=== PATIENT | male | born 1970 | race Caucasian/White ===

== ENCOUNTER 2020-03-12 13:30 | Emergency (ER) | payer BC, SELFPAY ==
[2020-03-12 13:32] VITALS: BP 138/72; PULSE 94; RESP 17; TEMP 36.8; O2SAT 100; BMI 58.8
--- NOTE | 2020-03-12 13:45 | XR_ITS ---
PROCEDURE: XR FOOT RT MIN 3V CLINICAL INDICATION: fall, toe pain Pain COMPARISON: No exams were available for comparison FINDINGS: Prominent os trigonum is present with bony hypertrophic change with the calcaneus. Osteoarthritic changes are present at the talonavicular and navicular cuneiform joint. There is a small calcaneal spur. Hypertrophic changes are present laterally at the navicular cuneiform region. There is flattening of the navicular laterally at this area. IMPRESSION: 1. No acute fracture. 2. Osteoarthritic changes. 3. Flattening of the navicular laterally which may be related to developing avascular necrosis or posttraumatic change with osteoarthritis. Dictated by: Lul Che MD 03/12/2020 14:44 Lul Che MD in [place] 03/12/2020 14:44
--- NOTE | 2020-03-12 13:46 | XR_ITS ---
PROCEDURE: XR KNEE LT 3V CLINICAL INDICATION: fall, knee pain COMPARISON: No exams were available for comparison FINDINGS: No fracture or dislocation. No lytic or blastic change. There is normal mineralization. Moderate to severe osteoarthritic changes are present at the knee. Soft tissue calcification is present along the medial and posterior aspect of the proximal leg consistent with phleboliths. Other findings:None. IMPRESSION: Osteoarthritis, no acute finding. Dictated by: Lul Che MD 03/12/2020 14:42 Lul Che MD in [facility] 03/12/2020 14:42
--- NOTE | 2020-03-12 13:46 | HMH.EDGENADL ---
ED Disposition Clinical Impression: Left knee injury Qualifiers: Encounter type: initial encounter Qualified Code(s): S89.92XA - Unspecified injury of left lower leg, initial encounter Disposition: Home, Self-Care Condition on Discharge: Good Instructions: DI for Knee Pain Additional Instructions: You have been evaluated for fall, left knee injury. Please wear a brace for comfort. Follow-up with your primary care physician and orthopedics in clinic. Return to the emergency department if you have any new or worsening pain or other concerns. Referrals: Elysia Gillis PA [Primary Care Provider] - Francesca Mcdaniel MD [Physician] - Time of Disposition: 16:16 - Critical Care Critical Care Time: No Attestation: On , the high probability of a clinically significant, sudden or life threatening deterioration of the following system(s) required my full and direct attention, intervention and personal management. The time I documented below is in addition to time spent performing reported procedures but includes the following listed in this critical care notation. Medical Decision Making - Medical Records Medical records reviewed: Yes: I reviewed the patient's medical records. - Gustavo Inquiry Pt receiving controlled substance: No Vital Signs: 03/12/20 13:32 Temperature 98.3 F Temperature Source Temporal Artery Scan Pulse Rate [Right] 94 H Respiratory Rate 17 Blood Pressure [Right Arm] 138/72 Blood Pressure Mean [Right Arm] 94 02 Sat by Pulse Oximetry 100 - Radiology Data #1 Image(s): Knee Image Reviewed: Yes I reviewed the patient's radiology results, Yes I reviewed the patient's radiology image Preliminary Findings: Normal/NAD FINDINGS: There are moderate to severe osteoarthritic changes of the left knee greatest at the medial compartment and patellofemoral joint. No acute fracture or dislocation is evident. Mildly prominent bony spurs are noted at the tibial spine and at the medial joint space and patellofemoral joint. There is a small knee joint effusion. There is a Tamez's cyst present measuring 3.6 cm. The cruciate ligaments are not well delineated and menisci are not well delineated with CT. IMPRESSION: 1. No acute fracture. 2. Moderate to severe osteoarthritic change with knee joint effusion and Tamez's cyst Medical Decision Narrative: In summary this is a 50-year-old male with history of right knee osteoarthritis presenting to the emergency department with right foot pain and left knee pain after a fall. Patient clinically stable on arrival. Bruising on the right foot is concerning for fracture. Left knee is tender to palpation, no palpable bony abnormality or effusion. Plan to start with plain film x-rays and reassess. X-rays show osteoarthritis of the left knee, but no acute fracture. No fractures in the right foot. On reassessment patient says he continues to have knee pain, located in the middle of his knee. He is unable to ambulate or bear weight. Concern for occult fracture like a tibial plateau. Will obtain CT scan of the lower extremity. CT scan shows no tibial plateau fracture. It does show bone spurs and arthritic changes. No significant joint instability on examination. Patient counseled that we have not evaluated menisci or ligaments of the knee, he may have a partial or complete tear. Patient given a soft knee brace. Recommended to take Tylenol and ibuprofen. Follow-up with orthopedics in clinic and PCP. General Adult HPI - General Chief complaint: Fall Stated complaint: ao10/ fell on wet mat Time Seen by Provider: 03/12/20 13:46 Mode of Arrival: Ambulatory Limitations: No Limitations Description of Symptoms (Recalled from ER Triage Doc. by RN): Fall yesterday outside on the concrete, pt states he slipped on a wet door mat and injured his left forearm, kimberly. ankles and knees. - History of Present Illness HPI narrative: 50-year-old male with histor
[2020-03-12 14:02] VITALS: BP 134/85; PULSE 87; RESP 17; O2SAT 99
--- NOTE | 2020-03-12 14:05 | XR_ITS ---
PROCEDURE: XR ANKLE LT MIN 3V CLINICAL INDICATION: injury Posttraumatic pain COMPARISON: No exams were available for comparison FINDINGS: No acute fracture or dislocation evident. Prominent os trigonum is present with an osteophyte with the os trigonum with calcaneus. Hypertrophic changes are present at the talonavicular joint. There is generalized soft tissue swelling. IMPRESSION: Degenerative changes, no acute finding Dictated by: Lul Ceh MD 03/12/2020 14:37 Lul Che MD in [place] 03/12/2020 14:37
--- NOTE | 2020-03-12 14:05 | XR_ITS ---
PROCEDURE: XR TIBIA FIBULA LT 2V CLINICAL INDICATION: injury Pain pain COMPARISON: No exams were available for comparison FINDINGS: No fracture or dislocation. No lytic or blastic change. There is normal mineralization. Osteoarthritic changes of the knee and ankle. Mild generalized soft tissue swelling. Other findings:None. IMPRESSION: No acute findings. Dictated by: Lul Che MD 03/12/2020 14:38 Lul Che MD in [facility] 03/12/2020 14:38
--- NOTE | 2020-03-12 15:06 | CT_ITS ---
PROCEDURE: CT KNEE LT WO CON CLINICAL HISTORY: fall, can't bear weight Posttraumatic pain, can't bear weight COMPARISON: No exams were available for comparison TECHNIQUE: Axial images obtained with sagittal and coronal reformats. All CT scans at the facility use one or more dose reduction, viz: automated exposure control, ma/kV adjustment per patient size (including targeted exams where dose is matched to indication, i.e. head), or iterative reconstruction technique. FINDINGS: There are moderate to severe osteoarthritic changes of the left knee greatest at the medial compartment and patellofemoral joint. No acute fracture or dislocation is evident. Mildly prominent bony spurs are noted at the tibial spine and at the medial joint space and patellofemoral joint. There is a small knee joint effusion. There is a Tamez's cyst present measuring 3.6 cm. The cruciate ligaments are not well delineated and menisci are not well delineated with CT. IMPRESSION: 1. No acute fracture. 2. Moderate to severe osteoarthritic change with knee joint effusion and Tamez's cyst Dictated by: Lul Che MD 03/12/2020 16:08 Lul Che MD in [place] 03/12/2020 16:08
[2020-03-12 15:30] VITALS: BP 137/85; PULSE 84; RESP 19; O2SAT 98
[2020-03-12 16:31] VITALS: BP 133/87; PULSE 87; RESP 18; TEMP 36.7; O2SAT 100
== END 2020-03-12 16:31 | disposition home or self-care (01) ==
PROVIDERS: Emergency Provider Emergency Medicine; PCP Nurse Practitioner Family
DX: S89.92XA Unspecified injury of left lower leg, initial encounter (principal); S50.12XA Contusion of left forearm, initial encounter; S90.02XA Contusion of left ankle, initial encounter; W01.0XXA Fall on same level from slipping, tripping and stumbling without subsequent striking against object, initial encounter; Y92.018 Other place in single-family (private) house as the place of occurrence of the external cause
CPT/HCPCS: 73562; 73590; 73610; 73630; 73700; 99282

== ENCOUNTER → 2020-03-31 11:23 | Outpatient (CLI) | payer BC, SELFPAY ==
--- NOTE | 2020-03-31 11:31 | XR_ITS ---
PROCEDURE: XR KNEE RT 4V CLINICAL INDICATION: B/L knee pain COMPARISON: CR KNEE 4V RT from 03/13/2019 CR KNEE 4V LT from 03/13/2019 CR XR KNEE LT 3V from 03/12/2020 FINDINGS: No fracture or dislocation. No lytic or blastic change. There is normal mineralization. There are severe osteoarthritic changes of the medial compartment and patellofemoral joint with loss of joint space medially with osteophyte formation and osteosclerosis. Mild osteoarthritis is present in the lateral compartment. Other findings:None. IMPRESSION: No change severe osteoarthritis of the right knee Dictated by: Lul Che MD 03/31/2020 13:20 Lul Che MD in [place] 03/31/2020 13:20
--- NOTE | 2020-03-31 11:31 | XR_ITS ---
PROCEDURE: XR KNEE LT 4V CLINICAL INDICATION: BL knee pain COMPARISON: CR KNEE 4V RT from 03/13/2019 CR KNEE 4V LT from 03/13/2019 CR XR KNEE LT 3V from 03/12/2020 FINDINGS: There are severe osteoarthritic changes of the medial compartment and patellofemoral joint with mild osteoarthritis of the lateral compartment. No fracture or dislocation. No lytic or blastic change. Other findings:None. IMPRESSION: No change severe osteoarthritis Dictated by: Lul Che MD 03/31/2020 13:18 Lul Che MD in [place] 03/31/2020 13:18
== END ==
PROVIDERS: PCP Nurse Practitioner Family; Visit Provider Orthopaedic Surgery
DX: M25.562 Pain in left knee (principal); M25.561 Pain in right knee
CPT/HCPCS: 73564

== ENCOUNTER 2021-04-29 16:00 | Outpatient (RCR) | payer BC, SELFPAY ==
--- NOTE | 2021-04-06 13:43 | HMH.PTOPWND ---
Rehab Outpt Wound Evaluation Rehab OP Wound Evaluation Start: 04/06/21 13:36 Freq: Status: Active Protocol: Document 04/06/21 13:36 PHONATY (Rec: 04/06/21 13:43 PHORNE [id number]) Electronically Signed By Madhu Alford, PT 04/06/21 13:36 Subjective/History History History Pt is 51 yowm who presents with c/o B LE edema x ~ 10 yrs , but worse x ~6-7 yrs. He reports increased pain in B LE with increased swelling, but no numbness or tingling. He has edema at night with LE elevation. He reports hx of HTN, and B LE OA. He reports pain is worse on B LE in the gaitor area. Subjective Subjective 2/4 tenderness to palpation B LE gaitor area. Currently pain is 4/10, 9/10 at worst. Increased fibrosis in B LE from medial thigh to ankle. Possible mixed diagnosis of LipoLymphedema. Lymphedema Eval Classification of Lymphedema Secondary Lymphedema Yes Stemmer's sign Stemmer's Sign yes Stage of Lymphedema Lymphedema stages Stage II (Pitting edema, increased fibrosis w/ decreased pitting) Skin Changes Dry Skin Yes Skin Folds Yes Papillomatosis Yes Redness Yes Discoloration of Skin Yes Peau D'Mckenzie Yes Other Changes Yes Pain Scale Pain Scale (0-10) 9 Affected Extremities Areas Affected by Lymphedema/Edema Right Lower Extremity,Left Lower Extremity Manual Lymphatic Drainage Treatment Area MLD Treatment Area Right Lower Extremity,Left Lower Extremity Wound Problems/Impairments Impairments Problems/Impairmments Palpation Tenderness,Impaired Endurance,Impaired Walking, Impaired Standing,Impaired Recreational Activities, Increased Edema,Lymphedema Present,Subjective C/O Pain, Impaired Self Care/Self Management Prognosis Rehab Potential Good Clinical Impression Consistent with Diagnosis Yes Short Term Goals Number of Weeks 4 Decreased
== END 2021-04-29 16:05 | disposition home or self-care (01) ==
LOC: PT 16:00
PROVIDERS: Visit Provider Emergency Medicine
DX: R60.0 Localized edema (principal)
CPT/HCPCS: 97110; 97140; 97162; 97760

== ENCOUNTER → 2021-05-13 17:11 | Outpatient (CLI) | payer BC, SELFPAY ==
[2021-05-13 18:52] LABS: Amphetamine/Metha Screen,Urine Negative ng/ml (<1000); Barbiturates Screen,Urine Negative ng/ml (<200)
[2021-05-13 18:53] LABS: Benzodiazepines Screen,Urine Negative ng/ml (<200)
[2021-05-13 18:54] LABS: Cannabinoid Screen,Urine Negative ng/ml (<50); Cocaine Screen,Urine Negative ng/ml (<300)
[2021-05-13 18:55] LABS: Methadone Screen,Urine Negative ng/ml (<300); Opiate Screen,Urine Positive ng/ml (<300)
[2021-05-13 18:56] LABS: Phencyclidine Screen,Urine Negative ng/ml (<25)
== END ==
PROVIDERS: Visit Provider Emergency Medicine
DX: S89.92XA Unspecified injury of left lower leg, initial encounter (principal)
CPT/HCPCS: 80305

== ENCOUNTER → 2021-07-13 16:00 | Outpatient (CLI) | payer MEDICARE, BC, SELFPAY ==
[2021-07-13 19:32] LABS: Amphetamine/Metha Screen,Urine Negative ng/ml (<1000)
[2021-07-13 19:33] LABS: Barbiturates Screen,Urine Negative ng/ml (<200)
[2021-07-13 19:34] LABS: Benzodiazepines Screen,Urine Negative ng/ml (<200); Cannabinoid Screen,Urine Negative ng/ml (<50)
[2021-07-13 19:35] LABS: Cocaine Screen,Urine Negative ng/ml (<300); Methadone Screen,Urine Negative ng/ml (<300)
[2021-07-13 19:36] LABS: Opiate Screen,Urine Positive ng/ml (<300)
[2021-07-13 19:37] LABS: Phencyclidine Screen,Urine Negative ng/ml (<25)
== END ==
PROVIDERS: Visit Provider Emergency Medicine
DX: Z79.899 Other long term (current) drug therapy (principal)
CPT/HCPCS: 80305

== ENCOUNTER → 2021-09-08 12:08 | Outpatient (CLI) | payer MEDICARE, BC, SELFPAY ==
[2021-09-08 20:12] LABS: Amphetamine/Metha Screen,Urine Negative ng/ml (<1000)
[2021-09-08 20:13] LABS: Barbiturates Screen,Urine Negative ng/ml (<200); Benzodiazepines Screen,Urine Negative ng/ml (<200)
[2021-09-08 20:14] LABS: Cannabinoid Screen,Urine Negative ng/ml (<50)
[2021-09-08 20:15] LABS: Cocaine Screen,Urine Negative ng/ml (<300); Methadone Screen,Urine Negative ng/ml (<300)
[2021-09-08 20:16] LABS: Opiate Screen,Urine Positive ng/ml (<300); Phencyclidine Screen,Urine Negative ng/ml (<25)
== END ==
PROVIDERS: PCP Emergency Medicine; Visit Provider Emergency Medicine
DX: G89.29 Other chronic pain (principal); M25.569 Pain in unspecified knee; Z79.899 Other long term (current) drug therapy
CPT/HCPCS: 80305

== ENCOUNTER 2021-09-18 16:00 | Outpatient (RCR) | payer MEDICARE, BC, SELFPAY ==
--- NOTE | 2021-09-08 14:04 | HMH.PTOPWND ---
Rehab Outpt Wound Evaluation Rehab OP Wound Evaluation Start: 09/08/21 13:29 Freq: Status: Active Protocol: Document 09/08/21 13:55 BRIGITTE (Rec: 09/08/21 14:02 PHORNANCIE [id number]) Electronically Signed By Madhu Alford, PT 09/08/21 13:55 Subjective/History History History Pt is 51 yowm who presents with c/o B LE edema x ~ 2-3 yrs. He reports prescription diuretics have helped reduce is edema a little bit. He also reports he recently had a large open wound to his posterior L calf, but it is healing well. He states, I scratched my leg too much with a back rn documentation specialist and then it started leaking all the time, but its better now. He reports no pain currently and no tenderness to palpation. Subjective Subjective B lower legs with fibrotic woody edema from knee distally. pain currently 0/10. Lymphedema Eval Classification of Lymphedema Secondary Lymphedema Yes Stemmer's sign Stemmer's Sign no Stage of Lymphedema Lymphedema stages Stage III (Non-pitting, fibrosis and sclerosis, skin changes) Skin Changes Dry Skin Yes Taut, Shiny Skin Yes Skin Folds Yes Hyperkeratosis Yes Papillomatosis Yes Redness Yes Wounds Yes Discoloration of Skin Yes Other Changes Yes Pain Scale Pain Scale (0-10) 0 Affected Extremities Areas Affected by Lymphedema/Edema Right Lower Extremity,Left Lower Extremity Manual Lymphatic Drainage Treatment Area MLD Treatment Area Right Lower Extremity,Left Lower Extremity Wound Problems/Impairments Impairments Problems/Impairmments Impaired Endurance,Impaired Walking,Impaired Standing, Impaired Sitting,Impaired Dressing,Impaired Household Care,Impaired Recreational Activities,Increased Edema, Lymphedema Present,Wound Care Needs,Subjective C/O Pain, Impaired Self Care/Self
== END 2021-09-18 16:05 | disposition home or self-care (01) ==
LOC: PT 16:00
PROVIDERS: PCP Emergency Medicine; Visit Provider Emergency Medicine
DX: I89.0 Lymphedema, not elsewhere classified (principal)
CPT/HCPCS: 97162; 97760

== ENCOUNTER → 2021-11-04 07:13 | Outpatient (CLI) | payer MEDICARE, BC, SELFPAY ==
[2021-11-03 20:16] LABS: Amphetamine/Metha Screen,Urine Negative ng/ml (<1000); Barbiturates Screen,Urine Negative ng/ml (<200)
[2021-11-03 20:17] LABS: Benzodiazepines Screen,Urine Negative ng/ml (<200)
[2021-11-03 20:18] LABS: Cannabinoid Screen,Urine Negative ng/ml (<50); Cocaine Screen,Urine Negative ng/ml (<300)
[2021-11-03 20:19] LABS: Methadone Screen,Urine Negative ng/ml (<300)
[2021-11-03 20:20] LABS: Opiate Screen,Urine Positive ng/ml (<300); Phencyclidine Screen,Urine Negative ng/ml (<25)
== END ==
PROVIDERS: PCP Emergency Medicine; Visit Provider Emergency Medicine
DX: Z79.899 Other long term (current) drug therapy (principal)
CPT/HCPCS: 80305

== ENCOUNTER → 2021-12-30 06:25 | Outpatient (CLI) | payer MEDICARE, BC, SELFPAY ==
[2021-12-30 18:10] LABS: Amphetamine/Metha Screen,Urine Negative ng/ml (<1000)
[2021-12-30 18:11] LABS: Barbiturates Screen,Urine Negative ng/ml (<200); Benzodiazepines Screen,Urine Negative ng/ml (<200)
[2021-12-30 18:12] LABS: Cannabinoid Screen,Urine Negative ng/ml (<50)
[2021-12-30 18:13] LABS: Cocaine Screen,Urine Negative ng/ml (<300); Methadone Screen,Urine Negative ng/ml (<300)
[2021-12-30 18:14] LABS: Opiate Screen,Urine Positive ng/ml (<300)
[2021-12-30 18:15] LABS: Phencyclidine Screen,Urine Negative ng/ml (<25)
== END ==
PROVIDERS: PCP Emergency Medicine; Visit Provider Emergency Medicine
DX: Z79.899 Other long term (current) drug therapy (principal)
CPT/HCPCS: 80305

== ENCOUNTER → 2022-03-30 16:00 | Outpatient (CLI) | payer MEDICARE, BC, SELFPAY ==
[2022-03-30 21:29] LABS: Amphetamine/Metha Screen,Urine Negative ng/ml (<1000)
[2022-03-30 21:30] LABS: Barbiturates Screen,Urine Negative ng/ml (<200); Benzodiazepines Screen,Urine Negative ng/ml (<200)
[2022-03-30 21:31] LABS: Cannabinoid Screen,Urine Negative ng/ml (<50)
[2022-03-30 21:32] LABS: Cocaine Screen,Urine Negative ng/ml (<300); Methadone Screen,Urine Negative ng/ml (<300)
[2022-03-30 21:33] LABS: Opiate Screen,Urine Positive ng/ml (<300)
[2022-03-30 21:35] LABS: Phencyclidine Screen,Urine Negative ng/ml (<25)
== END ==
PROVIDERS: PCP Emergency Medicine; Visit Provider Emergency Medicine
DX: Z79.899 Other long term (current) drug therapy (principal)
CPT/HCPCS: 80305

== ENCOUNTER → 2022-05-28 15:39 | Outpatient (CLI) | payer MEDICARE, BC, SELFPAY ==
[2022-05-28 19:28] LABS: Amphetamine/Metha Screen,Urine Negative ng/ml (<1000)
[2022-05-28 19:29] LABS: Barbiturates Screen,Urine Negative ng/ml (<200)
[2022-05-28 19:31] LABS: Benzodiazepines Screen,Urine Negative ng/ml (<200); Cannabinoid Screen,Urine Negative ng/ml (<50)
[2022-05-28 19:32] LABS: Cocaine Screen,Urine Negative ng/ml (<300)
[2022-05-28 19:33] LABS: Methadone Screen,Urine Negative ng/ml (<300); Opiate Screen,Urine Positive ng/ml (<300)
[2022-05-28 19:34] LABS: Phencyclidine Screen,Urine Negative ng/ml (<25)
== END ==
PROVIDERS: PCP Emergency Medicine; Visit Provider Emergency Medicine
DX: Z79.899 Other long term (current) drug therapy (principal)
CPT/HCPCS: 80305

== ENCOUNTER → 2022-07-23 10:32 | Outpatient (CLI) | payer MEDICARE, BC, SELFPAY ==
[2022-07-23 18:38] LABS: Basophils # 0.1 K/mm3 (0-0.2); Basophils % 0.5 % (0.1-2.0); Eosinophils # 0.3 K/mm3 (0.0-0.4); Eosinophils % 3.6 % (0.1-12.0); Hemoglobin 14.5 g/dL (14.1-18.0); Lymphocytes # 1.7 K/mm3 (0.7-4.5); Lymphocytes % 20.2 % (10-50); Mean Corpuscular HGB Conc 32.3 g/dL (31.8-35.4); Mean Corpuscular Hemoglobin 28.1 pg (27.0-31.2); Mean Platelet Volume 8.9 fl (7.4-10.4); Monocytes # 0.7 K/mm3 (0.1-1.0); Monocytes % 8.6 % (1.7-9.3); Neutrophils # 5.8 K/mm3 (1.8-7.8); Neutrophils % 67.1 % (37.0-80.0); Platelet Count 286 K/mm3 (142-424); Red Blood Count 5.18 M/mm3 (4.60-6.20); Red Cell Distribution Width 16.4 % (11.5-17.5); White Blood Count 8.7 K/mm3 (4.8-10.8)
[2022-07-23 18:52] LABS: Alanine Aminotransferase 22 U/L (12-78); Albumin Level 4.3 g/dl (3.5-5.0); Albumin/Globulin Ratio 1.4 (1.1-1.8); Alkaline Phosphatase 107 U/L (38-126); Anion Gap 12.2 mEq/L (5-15); Aspartate Amino Transferase 28 U/L (17-59); Bilirubin,Total 0.6 mg/dl (0.2-1.3); Blood Urea Nitrogen 21 mg/dl (9-20); Calcium 9.2 mg/dl (8.4-10.2); Carbon Dioxide 26 mmol/L (22.0-30.0); Chloride 100 mmol/L (98-107); Chol/HDL Ratio 2.5 (1-3.5); Cholesterol 158 mg/dl (140-200); Estimated Glomerular Filt Rate 79 ml/min (>60); GFR (African American) 95 ML/MIN (>60); Globulin 3.1 g/dL (1.3-3.2); Glucose 94 mg/dl (74-100); HDL Cholesterol 63 mg/dl (40-60); Potassium 4.2 mmoL/L (3.5-5.1); Sodium 134 mmol/L (136-145); Total Protein,Serum 7.4 g/dl (6.3-8.2); Triglycerides 101 mg/dl (30-150); VLDL Cholesterol 20 mg/dL (0-40)
[2022-07-23 19:03] LABS: Direct LDL Cholesterol 67.11 mg/dL (100-129); Free T4 (Free Thyroxine) 1.35 ng/dl (0.78-2.19)
[2022-07-23 19:05] LABS: Amphetamine/Metha Screen,Urine Negative ng/ml (<1000)
[2022-07-23 19:06] LABS: 25-OH Vitamin D, Total 17.7 ng/mL (30-100); Barbiturates Screen,Urine Negative ng/ml (<200); Benzodiazepines Screen,Urine Positive ng/ml (<200)
[2022-07-23 19:07] LABS: Cannabinoid Screen,Urine Positive ng/ml (<50)
[2022-07-23 19:08] LABS: Cocaine Screen,Urine Negative ng/ml (<300)
[2022-07-23 19:09] LABS: Methadone Screen,Urine Negative ng/ml (<300); Opiate Screen,Urine Positive ng/ml (<300)
[2022-07-23 19:10] LABS: Phencyclidine Screen,Urine Negative ng/ml (<25)
[2022-07-23 19:20] LABS: Thyroid Stimulating Hormone 2.15 uIU/mL (0.465-4.68)
== END ==
LOC: LAB.DROPOF 08-10 10:32
PROVIDERS: PCP Emergency Medicine; Visit Provider Emergency Medicine
DX: R53.83 Other fatigue (principal); E55.9 Vitamin D deficiency, unspecified; G89.29 Other chronic pain; E66.9 Obesity, unspecified; Z68.43 Body mass index [BMI] 50.0-59.9, adult; Z79.899 Other long term (current) drug therapy
CPT/HCPCS: 80053; 80061; 80305; 82306; 84439; 84443; 85025

== ENCOUNTER → 2022-07-23 23:40 | Outpatient (CLI) | payer MEDICARE, BC, SELFPAY | PROVIDERS: PCP Emergency Medicine; Visit Provider Emergency Medicine | DX: R53.83 Other fatigue (principal); E55.9 Vitamin D deficiency, unspecified ==

== ENCOUNTER → 2022-09-15 15:10 | Outpatient (CLI) | payer MEDICARE, BC, SELFPAY ==
[2022-09-15 20:16] LABS: Amphetamine/Metha Screen,Urine Negative ng/ml (<1000)
[2022-09-15 20:17] LABS: Barbiturates Screen,Urine Negative ng/ml (<200)
[2022-09-15 20:18] LABS: Benzodiazepines Screen,Urine Negative ng/ml (<200); Cannabinoid Screen,Urine Positive ng/ml (<50)
[2022-09-15 20:19] LABS: Cocaine Screen,Urine Negative ng/ml (<300)
[2022-09-15 20:20] LABS: Methadone Screen,Urine Negative ng/ml (<300); Opiate Screen,Urine Positive ng/ml (<300)
[2022-09-15 20:21] LABS: Phencyclidine Screen,Urine Negative ng/ml (<25)
== END ==
PROVIDERS: PCP Emergency Medicine; Visit Provider Emergency Medicine
DX: G89.29 Other chronic pain (principal); Z79.899 Other long term (current) drug therapy
CPT/HCPCS: 80305

== ENCOUNTER → 2022-11-08 15:40 | Outpatient (CLI) | payer MEDICARE, BC, SELFPAY | PROVIDERS: PCP Emergency Medicine; Visit Provider Emergency Medicine | DX: G89.29 Other chronic pain (principal) ==

== ENCOUNTER → 2022-11-08 18:54 | Outpatient (CLI) | payer MEDICARE, BC, SELFPAY ==
[2022-11-08 19:51] LABS: Amphetamine/Metha Screen,Urine Negative ng/ml (<1000); Barbiturates Screen,Urine Negative ng/ml (<200)
[2022-11-08 19:52] LABS: Benzodiazepines Screen,Urine Positive ng/ml (<200); Cannabinoid Screen,Urine Negative ng/ml (<50)
[2022-11-08 19:53] LABS: Cocaine Screen,Urine Negative ng/ml (<300)
[2022-11-08 19:54] LABS: Methadone Screen,Urine Negative ng/ml (<300); Opiate Screen,Urine Positive ng/ml (<300)
[2022-11-08 19:55] LABS: Phencyclidine Screen,Urine Negative ng/ml (<25)
== END ==
PROVIDERS: PCP Emergency Medicine; Visit Provider Emergency Medicine
DX: G89.29 Other chronic pain (principal)
CPT/HCPCS: 80305

== ENCOUNTER → 2023-01-07 23:48 | Outpatient (CLI) | payer MEDICARE, BC, SELFPAY ==
[2023-01-07 20:54] LABS: Amphetamine/Metha Screen,Urine Negative ng/ml (<1000); Barbiturates Screen,Urine Negative ng/ml (<200)
[2023-01-07 20:56] LABS: Benzodiazepines Screen,Urine Negative ng/ml (<200)
[2023-01-07 20:57] LABS: Cannabinoid Screen,Urine Positive ng/ml (<50)
[2023-01-07 20:58] LABS: Methadone Screen,Urine Negative ng/ml (<300)
[2023-01-07 20:59] LABS: Opiate Screen,Urine Positive ng/ml (<300); Phencyclidine Screen,Urine Negative ng/ml (<25)
[2023-01-07 21:06] LABS: Cocaine Screen,Urine Negative ng/ml (<300)
== END ==
PROVIDERS: PCP Emergency Medicine; Visit Provider Emergency Medicine
DX: G89.29 Other chronic pain (principal); Z79.899 Other long term (current) drug therapy
CPT/HCPCS: 80305

== ENCOUNTER → 2023-03-07 23:37 | Outpatient (CLI) | payer MEDICARE, SELFPAY ==
[2023-03-07 19:25] LABS: Barbiturates Screen,Urine Negative ng/ml (<200)
[2023-03-07 19:26] LABS: Amphetamine/Metha Screen,Urine Negative ng/ml (<1000); Cannabinoid Screen,Urine Positive ng/ml (<50)
[2023-03-07 19:27] LABS: Benzodiazepines Screen,Urine Negative ng/ml (<200); Methadone Screen,Urine Negative ng/ml (<300)
[2023-03-07 19:28] LABS: Cocaine Screen,Urine Negative ng/ml (<300)
[2023-03-07 19:29] LABS: Opiate Screen,Urine Negative ng/ml (<300); Phencyclidine Screen,Urine Negative ng/ml (<25)
== END ==
PROVIDERS: PCP Emergency Medicine; Visit Provider Emergency Medicine
DX: Z79.899 Other long term (current) drug therapy (principal)
CPT/HCPCS: 80305

== ENCOUNTER → 2023-05-04 09:58 | Outpatient (CLI) | payer MEDICARE, SELFPAY ==
[2023-05-04 19:18] LABS: Benzodiazepines Screen,Urine Negative ng/ml (<200)
[2023-05-04 19:19] LABS: Amphetamine/Metha Screen,Urine Negative ng/ml (<1000); Barbiturates Screen,Urine Negative ng/ml (<200)
[2023-05-04 19:20] LABS: Methadone Screen,Urine Negative ng/ml (<300)
[2023-05-04 19:21] LABS: Cannabinoid Screen,Urine Positive ng/ml (<50)
[2023-05-04 19:22] LABS: Cocaine Screen,Urine Negative ng/ml (<300)
[2023-05-04 19:23] LABS: Opiate Screen,Urine Positive ng/ml (<300); Phencyclidine Screen,Urine Negative ng/ml (<25)
[2023-05-04 19:49] LABS: Prostate Specific Ag Screen 0.2 ng/ml (0.0-4.0)
[2023-05-04 19:56] LABS: Microalbumin/Creatinine Ratio 8.9
[2023-05-04 19:57] LABS: Creatinine,Urine Random 107 mg/dL (Not Estab.)
[2023-05-04 21:13] LABS: Hemoglobin A1C 4.8 % (4.0-6.0)
== END ==
PROVIDERS: PCP Internal Medicine; Visit Provider Internal Medicine
DX: Z79.899 Other long term (current) drug therapy (principal); G89.29 Other chronic pain; Z12.5 Encounter for screening for malignant neoplasm of prostate; R73.09 Other abnormal glucose; E66.9 Obesity, unspecified; Z68.42 Body mass index [BMI] 45.0-49.9, adult
CPT/HCPCS: 80305; 82043; 82570; 83036; G0103

== ENCOUNTER 2023-05-30 23:54 | Outpatient (CLI) | payer MEDICARE, SELFPAY ==
[2023-05-30 23:00] LABS: Amphetamine/Metha Screen,Urine Negative ng/ml (<1000); Barbiturates Screen,Urine Negative ng/ml (<200); Benzodiazepines Screen,Urine Negative ng/ml (<200); Cannabinoid Screen,Urine Positive ng/ml (<50); Cocaine Screen,Urine Negative ng/ml (<300); Methadone Screen,Urine Negative ng/ml (<300); Opiate Screen,Urine Positive ng/ml (<300); Phencyclidine Screen,Urine Negative ng/ml (<25)
== END 2023-05-30 23:59 ==
LOC: LAB.DROPOF 23:55
PROVIDERS: PCP Internal Medicine; Visit Provider Internal Medicine
DX: Z79.899 Other long term (current) drug therapy (principal)
CPT/HCPCS: 80307

== ENCOUNTER 2023-06-13 14:54 | Outpatient (CLI) | payer MEDICARE, SELFPAY ==
--- NOTE | 2023-06-13 15:00 | XR_ITS ---
FINAL REPORT CLINICAL HISTORY: right knee pain FINDINGS: RIGHT KNEE 3 views of the right knee were obtained. There is no acute fracture or dislocation. There is marked medial compartment joint space narrowing. Subchondral cystic change is seen. There are osteophytes at the undersurface of the patella.. Soft tissues are unremarkable. IMPRESSION: Advanced changes of osteoarthritis without acute bony abnormality. Reviewed, Interpreted and Dictated by Patrick Huggins MD Transcribed by Mary Nevarez Authenticated and [facility]
--- NOTE | 2023-06-13 15:00 | XR_ITS ---
FINAL REPORT CLINICAL HISTORY: left knee pain FINDINGS: LEFT KNEE 3 views of the left knee were obtained. There is no acute fracture or dislocation. There is marked medial compartment joint space narrowing. Subchondral cystic change is seen. There are osteophytes at the undersurface of the patella.. Soft tissues are unremarkable. IMPRESSION: Advanced changes of osteoarthritis without acute bony abnormality. Reviewed, Interpreted and Dictated by Patrick Huggins MD Transcribed by Mary Nevarez Authenticated and [facility]
== END 2023-06-13 23:59 ==
LOC: RAD 14:55
PROVIDERS: PCP Internal Medicine; Visit Provider Internal Medicine
DX: M25.562 Pain in left knee (principal); M25.561 Pain in right knee
CPT/HCPCS: 73562

== ENCOUNTER 2023-10-06 10:00 | Outpatient (CLI) | payer MEDICARE, SELFPAY ==
[2023-10-05 18:30] LABS: Basophils % 0.5 % (0.1-2.0); Eosinophils # 0.3 K/mm3 (0.0-0.4); Hematocrit 47.6 % (42.0-52.0); Hemoglobin 14.8 g/dL (14.1-18.0); Lymphocytes # 2.3 K/mm3 (0.7-4.5); Mean Corpuscular HGB Conc 31.2 g/dL (31.8-35.4); Mean Corpuscular Hemoglobin 28.5 pg (27.0-31.2); Mean Corpuscular Volume 91.4 fl (80-94); Mean Platelet Volume 9.1 fl (7.4-10.4); Monocytes # 0.4 K/mm3 (0.1-1.0); Monocytes % 4.9 % (1.7-9.3); Neutrophils # 5.4 K/mm3 (1.8-7.8); Neutrophils % 63.7 % (37.0-80.0); Platelet Count 239 K/mm3 (142-424); Red Blood Count 5.21 M/mm3 (4.60-6.20); Red Cell Distribution Width 15.4 % (11.5-17.5); White Blood Count 8.4 K/mm3 (4.8-10.8)
[2023-10-05 18:32] LABS: Alanine Aminotransferase 47 U/L (12-78); Albumin Level 4.2 g/dl (3.5-5.0); Albumin/Globulin Ratio 1.4 (1.1-1.8); Alkaline Phosphatase 96 U/L (38-126); Anion Gap 12.8 mEq/L (5-15); Aspartate Amino Transferase 41 U/L (17-59); Bilirubin,Total 0.4 mg/dl (0.2-1.3); Blood Urea Nitrogen 20 mg/dl (9-20); Calcium 10.1 mg/dl (8.4-10.2); Carbon Dioxide 32 mmol/L (22.0-30.0); Chloride 100 mmol/L (98-107); Estimated Glomerular Filt Rate 89 ml/min (>60); GFR (African American) 107 ML/MIN (>60); Glucose 91 mg/dl (74-100); Potassium 4.8 mmoL/L (3.5-5.1); Sodium 140 mmol/L (136-145); Total Protein,Serum 7.2 g/dl (6.3-8.2)
[2023-10-05 18:45] LABS: 25-OH Vitamin D, Total 25.1 ng/mL (30-100)
[2023-10-05 19:00] LABS: Thyroid Stimulating Hormone 1.19 uIU/mL (0.465-4.68)
== END 2023-10-06 23:59 | disposition home or self-care (01) ==
LOC: LAB.DROPOF 10:00
PROVIDERS: PCP Internal Medicine; Visit Provider Internal Medicine
DX: R73.9 Hyperglycemia, unspecified (principal); E55.9 Vitamin D deficiency, unspecified; Z79.899 Other long term (current) drug therapy; E66.01 Morbid (severe) obesity due to excess calories; Z68.42 Body mass index [BMI] 45.0-49.9, adult
CPT/HCPCS: 80053; 82306; 83036; 84443; 85025

== ENCOUNTER → 2024-06-13 20:36 | Outpatient (CLI) | payer MEDICARE, SELFPAY | PROVIDERS: PCP Internal Medicine; Visit Provider Internal Medicine | DX: G47.33 Obstructive sleep apnea (adult) (pediatric) (principal); E66.01 Morbid (severe) obesity due to excess calories; Z68.42 Body mass index [BMI] 45.0-49.9, adult | CPT/HCPCS: 95811 ==

== ENCOUNTER 2024-08-09 10:45 | Outpatient (CLI) | payer MEDICARE, SELFPAY ==
[2024-08-09 19:54] LABS: Basophils % 0.7 % (0.1-2.0); Eosinophils # 0.5 K/mm3 (0.0-0.4); Eosinophils % 8.2 % (0.1-12.0); Hematocrit 46.9 % (42.0-52.0); Hemoglobin 14.7 g/dL (14.1-18.0); Lymphocytes # 2.2 K/mm3 (0.7-4.5); Lymphocytes % 35.8 % (10-50); Mean Corpuscular HGB Conc 31.3 g/dL (31.8-35.4); Mean Corpuscular Hemoglobin 28.4 pg (27.0-31.2); Mean Corpuscular Volume 90.7 fl (80-94); Mean Platelet Volume 10.5 fl (7.4-10.4); Monocytes # 0.6 K/mm3 (0.1-1.0); Monocytes % 9.3 % (1.7-9.3); Neutrophils # 2.8 K/mm3 (1.8-7.8); Neutrophils % 45.7 % (37.0-80.0); Platelet Count 256 K/mm3 (142-424); Red Blood Count 5.17 M/mm3 (4.60-6.20); Red Cell Distribution Width 15.3 % (11.5-17.5); White Blood Count 6.1 K/mm3 (4.8-10.8)
[2024-08-09 20:00] LABS: Alanine Aminotransferase 23 U/L (12-78); Albumin Level 4.4 g/dl (3.5-5.0); Albumin/Globulin Ratio 1.5 (1.1-1.8); Alkaline Phosphatase 91 U/L (38-126); Anion Gap 12.1 mEq/L (5-15); Aspartate Amino Transferase 27 U/L (17-59); Bilirubin,Total 0.6 mg/dl (0.2-1.3); Blood Urea Nitrogen 17 mg/dl (9-20); Calcium 9.2 mg/dl (8.4-10.2); Carbon Dioxide 27 mmol/L (22.0-30.0); Chloride 103 mmol/L (98-107); Chol/HDL Ratio 2.1 (1-3.5); Cholesterol 133 mg/dl (140-200); Estimated Glomerular Filt Rate 88 ml/min (>60); GFR (African American) 107 ML/MIN (>60); Globulin 2.9 g/dL (1.3-3.2); Glucose 75 mg/dl (74-100); HDL Cholesterol 62 mg/dl (40-60); Potassium 4.1 mmoL/L (3.5-5.1); Sodium 138 mmol/L (136-145); Total Protein,Serum 7.3 g/dl (6.3-8.2); Triglycerides 88 mg/dl (30-150); VLDL Cholesterol 18 mg/dL (0-40)
[2024-08-09 20:16] LABS: 25-OH Vitamin D, Total 25.2 ng/mL (30-100)
[2024-08-09 20:20] LABS: Direct LDL Cholesterol 44.25 mg/dL (100-129)
== END 2024-08-09 23:59 | disposition home or self-care (01) ==
LOC: LAB.DROPOF 08-10 12:21
PROVIDERS: PCP Family Medicine; Visit Provider Family Medicine
DX: I10 Essential (primary) hypertension (principal); D64.9 Anemia, unspecified; E55.9 Vitamin D deficiency, unspecified
CPT/HCPCS: 80053; 80061; 82306; 85025